=== PATIENT | male | born 1960 | race African-American/Black ===

== ENCOUNTER 2022-07-24 18:01 | Inpatient (IN) ==
[2022-07-24 18:09] VITALS: BMI 21.9
--- NOTE | 2022-07-24 18:20 | DR.ABDMALE ---
HPI Time seen Time Seen by Provider: 07/24/22 18:19 PCP Primary Care Physician: LAXMI Complaint Chief Complaint:: PT WAS TREATED FOR INGUINAL HERNIA WHILE IN [facility]. HAS BEEN OUT SINCE APRIL 23 AND HAS NOT SEEN A DOCTOR FOR IT SINCE THEN. HE IS C/O SEVERE PAIN AT PRESENT. RIGHT GROIN PROTRUDING COVID-19 Coronavirus risk:travel/contact w/high risk person: No Has patient experienced Coronavirus symptoms: No Mode of arrival Mode of Arrival: Ambulatory Timing Onset of Chief Complaint: 07/24/22 PMH PMH Past Medical History: Yes Past Medical History Comment: INGUINAL HERNIA Past Surgical History: Yes Past Surgical History Comment: HERNIA REPAIR Family History History of Family Medical Conditions: No Social History Does patient currently use any type of tobacco product: Yes Have you used tobacco products in the last 12 months: Yes Type of Tobacco Use: Cigarettes Does any household member use tobacco: Yes Alcohol Use: Rarely Do you use any recreational Drugs:: No Lives With: Family Lives Where: Home Travel Risk Coronavirus risk:travel/contact w/high risk person: No Has patient experienced Coronavirus symptoms: No Infectious screening In the last 2 months have you had wt loss of >10#?: NO Have you had fever, night sweats or hemotysis?: No Have you traveled outside the country in the last 6 months?: No Isolation: Standard PE Vital Signs Vital Signs: Temp Pulse Resp BP Pulse Ox O2 Del Method 07/24/22 18:43 20 07/24/22 18:02 99.2 F 68 24 125/70 100 Room Air ROR Labs Reviewed Result Diagrams: 07/26/22 04:10 07/26/22 04:10 Laboratory: WBC 5.9 X10^3/uL (3.6-10.0) 07/24/22 18:20 RBC 4.92 X10^6/uL (4.7-6.0) 07/24/22 18:20 Hgb 14.0 g/dL (13.5-18.0) 07/24/22 18:20 Hct 42.1 % (42.0-54.0) 07/24/22 18:20 MCV 85.6 fL (80.0-100.0) 07/24/22 18:20 MCH 28.4 pg (27.0-34.0) 07/24/22 18:20 MCHC 33.2 g/dL (33.0-35.0) 07/24/22 18:20 RDW 15.0 % (11.6-16.5) 07/24/22 18:20 Plt Count 275 X10^3/uL (150.0-450.0) 07/24/22 18:20 MPV 7.1 fL (7.4-11.0) L 07/24/22 18:20 Neut % (Auto) 55.7 % (42.0-75.0) 07/24/22 18:20 Lymph % (Auto) 35.7 % (21.0-51.0) 07/24/22 18:20 [place] % (Auto) 7.0 % (0.0-13.0) 07/24/22 18:20 Eos % (Auto) 1.0 % (0.9-2.9) 07/24/22 18:20 Baso % (Auto) 0.6 % (0.2-1.0) 07/24/22 18:20 Neut # (Auto) 3.3 x10^3/uL (2.2-4.8) 07/24/22 18:20 Lymph # (Auto) 2.1 X10^3/uL (1.3-2.9) 07/24/22 18:20 [place] # (Auto) 0.4 x10^3/uL (0.3-0.8) 07/24/22 18:20 Eos # (Auto) 0.1 x10^3/uL (0.0-0.2) 07/24/22 18:20 Baso # (Auto) 0.0 X10^3/uL (0.0-0.1) 07/24/22 18:20 Absolute Nucleated RBC 0.0 /100WBC 07/24/22 18:20 Sodium 144 mmol/L (136-145) 07/24/22 18:20 Corrected Sodium TNP 07/24/22 18:20 Potassium 3.6 mmol/L (3.5-5.1) 07/24/22 18:20 Chloride 105 mmol/L (98-107) 07/24/22 18:20 Carbon Dioxide 29.3 mmol/L (21-32) 07/24/22 18:20 BUN 9 mg/dL (7-18) 07/24/22 18:20 Creatinine 1.27 mg/dL (0.70-1.30) 07/24/22 18:20 Est GFR (MDRD) Af Amer > 60 (>60) 07/24/22 18:20 Est GFR (MDRD) Non-Af > 60 (>60) 07/24/22 18:20 Glucose 82 mg/dL (65-99) 07/24/22 18:20 Calcium 9.1 mg/dL (8.5-10.1) 07/24/22 18:20 Corrected Calcium TNP 07/24/22 18:20 Total Bilirubin 0.60 mg/dL (0.2-1.0) 07/24/22 18:20 AST 52 Units/L (15-37) H 07/24/22 18:20 ALT 34 Units/L (12-78) 07/24/22 18:20 Alkaline Phosphatase 64 Units/L (46-116) 07/24/22 18:20 Total Protein 7.5 g/dL (6.4-8.2) 07/24/22 18:20 Albumin 3.6 g/dL (3.4-5.0) 07/24/22 18:20 Globulin 3.9 g/dL (2.5-4.5) 07/24/22 18:20 Albumin/Globulin Ratio 0.9 Ratio (1.1-2.1) L 07/24/22 18:20 Opioid Opioid Risk Tool Age ([place]on box if 16-45): No History of Preadolescent Sexual Abuse: No Total: 0 Total Score Risk Category: Low Risk Copyright: Rene ALVARENGA predicting aberrant behaviors Discharge Plan Discharge Plan Patient Disposition: 09 ADMITTED INPATIENT Condition: Stable
[2022-07-24] MEDS ORDERED: NS 1,000 ML IV 1,000 ML IV ONE (18:27)
[2022-07-24] MEDS ORDERED: ZOFRAN INJ 4 MG VIAL IVP ONE (18:28)
[2022-07-24] MEDS ORDERED: DILAUDID INJ IVP ONE (18:29)
[2022-07-24 18:32] LABS: BASOPHILS % (AUTO) 0.6 % (0.2-1.0); EOSINOPHILS # (AUTO) 0.1 x10^3/uL (0.0-0.2); HEMATOCRIT 42.1 % (42.0-54.0); LYMPHOCYTES # (AUTO) 2.1 X10^3/uL (1.3-2.9); LYMPHOCYTES % (AUTO) 35.7 % (21.0-51.0); MEAN CORPUSCULAR HEMOGLOBIN 28.4 pg (27.0-34.0); MEAN CORPUSCULAR HGB CONC 33.2 g/dL (33.0-35.0); MEAN CORPUSCULAR VOLUME 85.6 fL (80.0-100.0); MEAN PLATELET VOLUME 7.1 fL (7.4-11.0); MONOCYTES # (AUTO) 0.4 x10^3/uL (0.3-0.8); NEUTROPHILS # (AUTO) 3.3 x10^3/uL (2.2-4.8); NEUTROPHILS % (AUTO) 55.7 % (42.0-75.0); RED BLOOD COUNT 4.92 X10^6/uL (4.7-6.0); WHITE BLOOD COUNT 5.9 X10^3/uL (3.6-10.0)
[2022-07-24] MEDS ORDERED: DILAUDID INJ ONE (18:33)
[2022-07-24] MEDS ORDERED: ZOFRAN INJ 4 MG VIAL ONE (18:33)
[2022-07-24 18:45] LABS: ALANINE AMINOTRANSFERASE 34 Units/L (12-78); ALBUMIN 3.6 g/dL (3.4-5.0); ALKALINE PHOSPHATASE 64 Units/L (46-116); ASPARTATE AMINO TRANSFERASE 52 Units/L (15-37); BLOOD UREA NITROGEN 9 mg/dL (7-18); CALCIUM 9.1 mg/dL (8.5-10.1); CARBON DIOXIDE 29.3 mmol/L (21-32); CHLORIDE 105 mmol/L (98-107); CREATININE 1.27 mg/dL (0.70-1.30); SODIUM 144 mmol/L (136-145); TOTAL PROTEIN 7.5 g/dL (6.4-8.2); eGFR NON BLACK RACES > 60 (>60)
[2022-07-24] MEDS ORDERED: NS 1,000 ML IV 1,000 ML ONE (18:46)
[2022-07-24] MEDS: NS 1,000 ML IV 1,000 ML IV SCH (18:50)
[2022-07-24] MEDS ORDERED: ZOFRAN INJ 4 MG VIAL IVP PRN (19:52)
[2022-07-24] MEDS: DILAUDID INJ IVP PRN (20:51)
--- NOTE | 2022-07-24 23:21 | RAD ---
HISTORYPT WAS TREATED FOR INGUINAL HERNIA WHILE IN [facility]. HAS BEEN OUT SINCE APRIL 23 AND HAS NOT SEEN A DOCTOR FOR IT SINCE THEN. HE IS C/O SEVERE PAIN AT PRESENT. RIGHT GROIN PROTRUDING Relevant Clinical InformationSTUDYCHEST, 1 VIEWCOMPARISONFINDINGSThe trachea is midline. The cardiac silhouette is unremarkable. The lungs are clear without focal infiltrate or effusion. The bony thorax is unremarkable.IMPRESSIONNo acute cardiopulmonary findings .Electronically signed by: Murphy Causey (Jul 24, 2022 23:19:29)
[2022-07-25 00:51] LABS: BILIRUBIN,URINE NEGATIVE (NEGATIVE); BLOOD/HEMOGLOBIN,URINE NEGATIVE (NEGATIVE); GLUCOSE, URINE NEGATIVE (NEGATIVE); KETONES,URINE NEGATIVE (NEGATIVE); LEUKOCYTE ESTERASE ,URINE NEGATIVE (NEGATIVE); NITRITES,URINE NEGATIVE (NEGATIVE); PROTEIN,URINE NEGATIVE (NEGATIVE); UROBILINOGEN,URINE NORMAL (NORMAL)
[2022-07-25 00:53] LABS: APPEARANCE,URINE CLEAR (CLEAR); COLOR,URINE YELLOW (YELLOW)
[2022-07-25] MEDS: DILAUDID INJ IVP PRN ×3 (00:54→18:31)
[2022-07-25 05:35] LABS: BASOPHILS % (AUTO) 0.6 % (0.2-1.0); EOSINOPHILS # (AUTO) 0.1 x10^3/uL (0.0-0.2); EOSINOPHILS % (AUTO) 1.6 % (0.9-2.9); HEMATOCRIT 38.4 % (42.0-54.0); HEMOGLOBIN 12.7 g/dL (13.5-18.0); LYMPHOCYTES # (AUTO) 2.1 X10^3/uL (1.3-2.9); LYMPHOCYTES % (AUTO) 39.4 % (21.0-51.0); MEAN CORPUSCULAR VOLUME 84.7 fL (80.0-100.0); MEAN PLATELET VOLUME 7.5 fL (7.4-11.0); MONOCYTES # (AUTO) 0.3 x10^3/uL (0.3-0.8); MONOCYTES % (AUTO) 6.4 % (0.0-13.0); NEUTROPHILS # (AUTO) 2.7 x10^3/uL (2.2-4.8); RED BLOOD COUNT 4.53 X10^6/uL (4.7-6.0); RED CELL DISTRIBUTION WIDTH 15.4 % (11.6-16.5); WHITE BLOOD COUNT 5.3 X10^3/uL (3.6-10.0)
[2022-07-25 05:50] LABS: ALANINE AMINOTRANSFERASE 26 Units/L (12-78); ALBUMIN 2.9 g/dL (3.4-5.0); ALKALINE PHOSPHATASE 50 Units/L (46-116); ASPARTATE AMINO TRANSFERASE 44 Units/L (15-37); BLOOD UREA NITROGEN 10 mg/dL (7-18); CALCIUM 8.5 mg/dL (8.5-10.1); CARBON DIOXIDE 28.7 mmol/L (21-32); CHLORIDE 106 mmol/L (98-107); COR CA(FOR HYPOALB) 9.4 mg/dL (8.5-10.1); CREATININE 1.06 mg/dL (0.70-1.30); SODIUM 143 mmol/L (136-145); TOTAL PROTEIN 4.7 g/dL (6.4-8.2); eGFR NON BLACK RACES > 60 (>60)
[2022-07-25] MEDS: NS 1,000 ML IV 1,000 ML IV SCH ×3 (06:35→20:49)
[2022-07-25] MEDS ORDERED: ANCEF VIAL 1 GRAM IVP ONE (07:52)
[2022-07-25] MEDS ORDERED: NS 100 ML IV 100 ML ONE (08:01)
[2022-07-25] MEDS ORDERED: MARCAINE 0.25% INJ ONE (08:07)
[2022-07-25] MEDS ORDERED: LR 1,000 ML IV 1,000 ML IV ONE (08:12)
[2022-07-25] MEDS ORDERED: POLYMYXIN B SULFATE ONE (08:14)
[2022-07-25] MEDS ORDERED: EPHEDRINE SULFATE INJ ONE ×2 (08:57→10:16)
[2022-07-25] MEDS ORDERED: BRIDION ONE ×2 (08:57→08:58)
[2022-07-25] MEDS ORDERED: FENTANYL VIAL INJ 100 mcg ONE ×2 (08:57)
[2022-07-25] MEDS ORDERED: VERSED ONE ×2 (08:57)
[2022-07-25] MEDS ORDERED: ZEMURON 100 MG VIAL ONE ×2 (08:57→08:58)
[2022-07-25] MEDS ORDERED: XYLOCAINE 2 % (PLAIN) ONE ×3 (08:57→10:06)
[2022-07-25] MEDS ORDERED: DIPRIVAN VIAL ONE (08:57)
[2022-07-25] MEDS ORDERED: PRECEDEX INJ VIAL IVP ONE ×2 (08:57→08:58)
[2022-07-25] MEDS ORDERED: PEPCID 20 MG VIAL ONE ×2 (08:57→08:58)
[2022-07-25] MEDS ORDERED: OFIRMEV IV 1000 MG VIAL IV ONE (08:57)
[2022-07-25] MEDS ORDERED: DECADRON INJ ONE ×2 (08:58)
[2022-07-25] MEDS ORDERED: ATROPINE SULFATE ONE ×2 (08:58→10:01)
[2022-07-25] MEDS ORDERED: ROBINUL ONE (08:58)
[2022-07-25] MEDS ORDERED: ZOFRAN INJ 4 MG VIAL ONE (08:58)
[2022-07-25] MEDS ORDERED: OFIRMEV IV 1000 MG VIAL 1,000 MG/100 ML VIAL IV ONE (08:58)
[2022-07-25] MEDS ORDERED: TORADOL 30 MG VIAL ONE ×2 (08:58→10:01)
[2022-07-25] MEDS ORDERED: DIPRIVAN VIAL 20 ML ONE (08:58)
[2022-07-25] MEDS ORDERED: ANCEF VIAL 1 GRAM ONE (09:53)
[2022-07-25] MEDS ORDERED: MARCAINE 0.5% ONE (09:54)
[2022-07-25] MEDS ORDERED: BACTROBAN TOPICAL OINT ONE (12:05)
[2022-07-25] MEDS ORDERED: BARHEMSYS INJ IVP PRN (12:29)
[2022-07-25] MEDS ORDERED: DILAUDID INJ IVP PRN (12:29)
[2022-07-25] MEDS ORDERED: BENADRYL INJ 50 MG VIAL IVP PRN (12:29)
[2022-07-25] MEDS ORDERED: PHENERGAN INJ 25 MG IM PRN (12:29)
[2022-07-25] MEDS: ANCEF VIAL 1 GRAM IVP SCH ×2 (13:42→21:46)
[2022-07-26] MEDS: ANCEF VIAL 1 GRAM IVP SCH (05:21)
[2022-07-26] MEDS: NS 1,000 ML IV 1,000 ML IV SCH (05:26)
[2022-07-26 05:29] LABS: BASOPHILS % (AUTO) 0.3 % (0.2-1.0); EOSINOPHILS % (AUTO) 0.1 % (0.9-2.9); HEMATOCRIT 35.6 % (42.0-54.0); HEMOGLOBIN 12.1 g/dL (13.5-18.0); LYMPHOCYTES # (AUTO) 1.5 X10^3/uL (1.3-2.9); LYMPHOCYTES % (AUTO) 15.5 % (21.0-51.0); MEAN CORPUSCULAR HEMOGLOBIN 28.8 pg (27.0-34.0); MEAN CORPUSCULAR HGB CONC 33.8 g/dL (33.0-35.0); MEAN CORPUSCULAR VOLUME 85.3 fL (80.0-100.0); MEAN PLATELET VOLUME 7.7 fL (7.4-11.0); MONOCYTES # (AUTO) 0.7 x10^3/uL (0.3-0.8); MONOCYTES % (AUTO) 7.1 % (0.0-13.0); NEUTROPHILS # (AUTO) 7.6 x10^3/uL (2.2-4.8); RED BLOOD COUNT 4.18 X10^6/uL (4.7-6.0); WHITE BLOOD COUNT 9.9 X10^3/uL (3.6-10.0)
[2022-07-26 05:42] LABS: ALANINE AMINOTRANSFERASE 21 Units/L (12-78); ALBUMIN 2.7 g/dL (3.4-5.0); ALKALINE PHOSPHATASE 52 Units/L (46-116); ASPARTATE AMINO TRANSFERASE 26 Units/L (15-37); BLOOD UREA NITROGEN 10 mg/dL (7-18); CALCIUM 8.3 mg/dL (8.5-10.1); CARBON DIOXIDE 29.3 mmol/L (21-32); CHLORIDE 107 mmol/L (98-107); COR CA(FOR HYPOALB) 9.3 mg/dL (8.5-10.1); CREATININE 1.12 mg/dL (0.70-1.30); SODIUM 143 mmol/L (136-145); eGFR NON BLACK RACES > 60 (>60)
[2022-07-26 08:28] VITALS: BP 115/56
== END 2022-07-26 09:10 | disposition home or self-care (01) | DRG 352 ==
LOC: OBS 18:01 → ER 18:01 → OBSVTOIN 19:02 → OBS 19:29
PROVIDERS: ADMIT Surgery; ATTEND Surgery
DX: R94.31 Abnormal electrocardiogram [ECG] [EKG]; K40.91 Unilateral inguinal hernia, without obstruction or gangrene, recurrent